=== PATIENT | female | born 1995 | race Hispanic/Latino ===

== ENCOUNTER 2023-04-29 07:29 | Day surgery (SDC) | payer BC ==
[2023-04-25 11:28] VITALS: BP 123/75; PULSE 72; RESP 16
[2023-04-25 11:28] LABS: BASOPHILS # (AUTO) 0.03 K/uL (0.00-0.20); BASOPHILS % (AUTO) 0.3 % (0.0-5.0); EOSINOPHILS # (AUTO) 0.17 K/uL (0.00-0.70); EOSINOPHILS % (AUTO) 1.9 % (0.0-8.0); IMMATURE GRANULOCYTE ABSOLUTE 0.02 K/uL (0-1); LYMPHOCYTES # (AUTO) 2.4 K/uL (1.0-4.8); MEAN CORPUSCULAR HEMOGLOBIN 28.5 pg (27.0-33.0); MEAN CORPUSCULAR HGB CONC 32.9 g/dL (32.0-36.0); MEAN CORPUSCULAR VOLUME 86.5 fL (79-99); MONOCYTES # (AUTO) 0.6 K/uL (0.1-1.0); MONOCYTES % (AUTO) 6.4 % (3.0-13.0); NEUTROPHILS # (AUTO) 5.6 K/uL (1.8-7.7); NEUTROPHILS % (AUTO) 64.2 % (40.0-77.0); PLATELET COUNT (AUTO) 331 K/uL (130-400); RED BLOOD CELL COUNT(AUTO) 4.74 MIL/uL (4.00-5.50); RED CELL DISTRIBUTION WIDTH 12.3 % (11.0-15.5); WHITE BLOOD COUNT (AUTO) 8.7 K/uL (4.8-10.8)
[~2023-04-29] VITALS: Ht 165.1 cm; Wt 95.6 kg
[2023-04-29] VITALS (17 sets, daily range): BP systolic 111–136; BP diastolic 61–81; PULSE 62–83; RESP 12–18
[~2023-04-29 07:29] MED LIST: CALDOLOR 800MG+NS 250ML 250 ML IV ONE; DEXAMETHASONE SOD PHOSPHATE 10MG/ML 1ML VIAL ONE; FENTANYL CITRATE PF 50 MCG/1 ML 2ML VIAL ONE; LIDOCAINE PF 100MG/5ML (2%) SYRINGE 5ML ONE; MIDAZOLAM HCL 1 MG/ML 2ML VIAL ONE; ONDANSETRON 4MG INJ ONE; PROPOFOL 10 MG/ML 20ML VIAL IV ONE; ROCURONIUM 10MG/1ML SYR 10 MG/ML ML ONE; SUCCINYLCHOLINE 200MG/10ML SYR ONE
[2023-04-29] MEDS ORDERED: LACTATED RINGERS 1000ML 1,000 ML IV ONE (07:36)
[2023-04-29] MEDS: CEFAZOLIN SODIUM 2 GM VIAL ONE ×2 (07:46→09:00)
[2023-04-29] MEDS ORDERED: BUPIVACAINE/PF 0.25% 30ML VIAL IJ ONE (09:18)
[2023-04-29] MEDS ORDERED: GLYCOPYRROLATE 1 MG/5 ML SYRINGE ONE (09:26)
[2023-04-29] MEDS ORDERED: NEOSTIGMINE 5MG/5ML SYR IV ONE (09:26)
[2023-04-29] MEDS ORDERED: MEPERIDINE-PF 25 MG/ML SYG ONE (10:14)
[2023-04-29] MEDS ORDERED: ONDANSETRON 4MG INJ ONE (10:16)
== END 2023-04-29 11:40 | disposition home or self-care (01) ==
LOC: DAH 07:29
PROVIDERS: ATTEND Obstetrics & Gynecology
DX: Z30.2 Encounter for sterilization (principal); Z20.822 Contact with and (suspected) exposure to COVID-19; N92.0 Excessive and frequent menstruation with regular cycle; N84.0 Polyp of corpus uteri; N81.2 Incomplete uterovaginal prolapse; E66.01 Morbid (severe) obesity due to excess calories; Z72.89 Other problems related to lifestyle; Z79.899 Other long term (current) drug therapy; Z98.890 Other specified postprocedural states; Z98.891 History of uterine scar from previous surgery; Z82.49 Family history of ischemic heart disease and other diseases of the circulatory system; Z68.35 Body mass index [BMI] 35.0-35.9, adult
CPT/HCPCS: 84703; 85025; 86850 ×2; 86900 ×2; 86901 ×2; 87426; 36415 ×2; 58670; 58563; 81025; A6260; A4663; J7030; A4355; J7120; J3010; J0330; J3490 ×2; J1100; J2710; J2001; J2250; J2704; J2405 ×2; J2175; J1741; J0690; C1769 ×2; A4351; A4215; A4223; A4222; A4221; G0168